=== PATIENT | male | born 1930 | race American Indian/Alaskan Native ===

== ENCOUNTER 2016-08-22 06:23 | Day surgery (SDC) | payer MEDICARE ==
[2016-08-22] MEDS ORDERED: NACL 0.9% 500 ML 500 ML IV SCH (07:00)
[2016-08-22 07:15] LABS: Basophils % (Auto) 0.9 % (0.0-1.8); Eosinophils % (Auto) 1.6 % (0.0-4.3); Hematocrit 39.8 % (35.5-45.6); Hemoglobin 13.2 gm/dl (11.8-15.2); Mean Corpuscular HGB Conc 33 % (32-34); Mean Corpuscular Hemoglobin 29 pg (28-32); Mean Corpuscular Volume 86 fl (84-94); Platelet Count 273 K/mm3 (140-440); Red Cell Distribution Width 14.2 % (13.2-15.2); White Blood Count 7.2 K/mm3 (4.5-11.0)
[2016-08-22 07:35] LABS: Anion Gap 16 mmol/L; BUN/Creatinine Ratio 16.66; Blood Urea Nitrogen 20 mg/dL (9-20); Calcium 9.1 mg/dL (8.4-10.2); Carbon Dioxide 27 mmol/L (22-30); Glucose 109 mg/dL (75-100); Potassium 3.6 mmol/L (3.6-5.0); Sodium 143 mmol/L (137-145)
[2016-08-22] MEDS: VERSED ONE ×2 (09:10→09:25)
[2016-08-22] MEDS: XYLOCAINE 2% INFILTRATI ONE ×2 (09:11→09:33)
[2016-08-22] MEDS: HEPARIN 10,000 UNITS/10 ML ONE ×2 (09:11→09:36)
[2016-08-22] MEDS: SUBLIMAZE ONE ×2 (09:11→09:25)
[2016-08-22] MEDS: CALAN ONE ×2 (09:11→09:36)
[2016-08-22] MEDS: NITROGLYCERIN SYRINGE 3 ML ONE ×2 (09:12→09:36)
[2016-08-22] MEDS: HEPARIN/NS 5000 UNIT/500ML(CATH LAB) 1,000 ML IR ONE ×2 (09:12→09:36)
[2016-08-22] MEDS ORDERED: APRESOLINE ONE (09:29)
--- NOTE | 2016-08-22 10:37 | Cardiac Catherization Report ---
CARDIAC CATHETERIZATION REPORT REASON FOR PROCEDURE: Chest pain and unstable angina. PROCEDURE: The patient was prepped and draped in a sterile fashion after informed consent. The right radial artery was entered using the Seldinger technique followed by placement of a 6-Urdu hydrophilic sheath. Routine radial cocktail was administered via the sheath. A #3.5 left Suzanne catheter was used for left coronary angiography. A #4 right Suzanne was used for right coronary angiography. The pigtail catheter was used for left ventricle angiography. The catheters were removed, sheath removed, and hemostasis achieved using manual compression. The patient was returned to the post-procedure unit in stable condition. There were no complications. FINDINGS: HEMODYNAMICS: Left ventricle end diastolic pressure was 23, following coronary angiography. Ascending aortic pressure was 179/60. There was no significant pressure gradient on pullback across the aortic valve. CORONARY ANGIOGRAPHY: The left main coronary artery contained diffuse mild atherosclerosis. There was an ulcerated, 50-60% stenosis of the LAD in its proximal segment, close to the ostium. Following that, there was diffuse mild to moderate atherosclerosis of the proximal and mid segments of the LAD. Another, 60-70% stenosis of the distal LAD was noted in its apical segment. Circumflex was a medium to large vessel that contained a 95-99% stenosis of its proximal AV groove segment. Following that, there was complete occlusion of a mid AV groove circumflex. This was a long segment of chronic total occlusion. There was amph-si-yexl collateralization reconstitution of a large terminal bifurcating obtuse marginal branch. The right coronary artery was dominant. A stent was visible in the mid right coronary artery. This previous stent was widely patent. Otherwise, there was mild diffuse atherosclerosis of the proximal, mid, and distal segments of the right coronary artery. There was normal left ventricular systolic function, ejection fraction 60%. CONCLUSION: 1. Multivessel coronary artery disease as above. 2. Ulcerated, but nonobstructive disease of the proximal LAD. 3. 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 4. Patent prior right coronary artery stent. 5. Normal left ventricular systolic function, ejection fraction 60%. RECOMMENDATION: Options for management of coronary lesions would be discussed with the patient. Options included medical therapy versus single vessel coronary intervention of the chronic total occlusion of the circumflex artery versus surgical revascularization of left anterior descending and circumflex. JOB# [id number] MAHSA/JAVI
[2016-08-22] MEDS ORDERED: APRESOLINE IV PRN (10:39)
--- NOTE | 2016-08-22 10:39 | Discharge Summary ---
Short Stay Discharge Plan Activity: advance as tolerated Weight Bearing Status: Full Weight Bearing Diet: low fat, low cholesterol, low salt Wound: keep clean and dry Special Instructions: no heavy lifting (3 days) Follow up with: JEAN CLAUDE ROSENBAUM MD [Primary Care Provider] - 7 Days WILBUR ESPARZA MD [Staff Physician] - 7 Days Prescriptions: Ranolazine [Ranexa] 500 mg PO BID #[id number]
[2016-08-22] MEDS ORDERED: NACL 0.9% 1000 ML 1,000 ML IV SCH (11:00)
[2016-08-22 12:55] VITALS: BP 137/50
== END 2016-08-22 13:30 | disposition home or self-care (01) ==
LOC: OPU 06:23
PROVIDERS: ATTEND Internal Medicine Cardiovascular Disease
DX: I25.110 Atherosclerotic heart disease of native coronary artery with unstable angina pectoris (principal); I25.82 Chronic total occlusion of coronary artery; Z95.5 Presence of coronary angioplasty implant and graft
CPT/HCPCS: 36415; 80048; 85025; 85610; 85730; 93005; 93010; 93458; C1894; J0360; J1644; J2250; J3010; J7040; Q9967